=== PATIENT | male | born 1995 | race Caucasian/White ===

== ENCOUNTER 2018-02-06 20:02 | Inpatient (IN) | payer OTHER ==
[~2018-02-06] VITALS: Ht 165.1 cm; Wt 64.4 kg
[2018-02-06] MEDS ORDERED: DEPO-TESTOS200 MG/M1 IM (20:22)
[2018-02-06 20:40] LABS: BASO % 0.2 % (0.0-2.0); EOS % 0.2 % (0-4.0); GRAN % 70.3 % (42.2-75.2); HEMOGLOBIN 10.3 g/dl (13.5-18.0); LYMPH % 18.1 % (20.0-51.0); MEAN CELL VOLUME 85 fl (80.0-100.0); MEAN CORPUSCULAR HEMOGLOBIN 28 pg (27.0-31.0); MEAN CORPUSCULAR HGB CONC 33 g/dl (33.0-37.0); MEAN PLATELET VOLUME 8.9 fl (7.4-10.4); MONO # 1.2 (0.1-0.6); MONO % 10.8 % (1.7-9.3); PLATELET COUNT 332 K/mm3 (130-400); RED BLOOD COUNT 3.69 M/mm3 (4.20-5.60); REDCELL DISTRIBUTION WIDTH-CV 13.6 % (11.5-14.5)
[2018-02-06 20:41] LABS: HEMATOCRIT 31.5 % (42.0-52.0)
[2018-02-06 20:49] LABS: ALBUMIN 3.7 gm/dL (3.5-5.0); BILIRUBIN,TOTAL 0.3 mg/dL (0.0-1.0); CALCIUM 9.1 mg/dL (8.4-10.2); CREATININE, serum 1.59 mg/dL (0.66-1.25); TOTAL PROTEIN 7.4 gm/dL (6.4-8.2)
[2018-02-06 21:00] LABS: C-REACTIVE PROTEIN 16.1 mg/dL (0.0-0.9)
[2018-02-06 23:54] LABS: COLLECTION METHOD CLEAN CATCH
[2018-02-07] VITALS (219 sets, daily range): BP systolic 99–164; BP diastolic 58–98; PULSE 79–138; TEMP 98.2–103.1; O2SAT 95–100
[2018-02-07 00:07] LABS: PH 7 (5-8); SQUAMOUS EPITHELIAL None Seen /hpf; URINE APPEARANCE Hazy; URINE BACTERIA None Seen /hpf; URINE BILIRUBIN Negative (NEGATIVE); URINE BLOOD 2+ (NEGATIVE); URINE COLOR Straw; URINE GLUCOSE Negative (NEGATIVE); URINE KETONE Negative (NEGATIVE); URINE LEUKOCYTE ESTERASE 3+ (NEGATIVE); URINE NITRATE Negative (NEGATIVE); URINE PROTEIN(semi-quant) Negative (NEGATIVE); URINE RBC 0-2 /hpf; URINE UROBILINOGEN Negative (NEGATIVE)
[2018-02-07] MEDS ORDERED: TUMS500 MG PO (00:39)
[2018-02-07 07:04] LABS: BASO % 0.1 % (0.0-2.0); EOS % 0.1 % (0-4.0); GRAN % 67.7 % (42.2-75.2); LYMPH % 19.6 % (20.0-51.0); MEAN CELL VOLUME 86 fl (80.0-100.0); MEAN CORPUSCULAR HEMOGLOBIN 28 pg (27.0-31.0); MEAN CORPUSCULAR HGB CONC 32 g/dl (33.0-37.0); MEAN PLATELET VOLUME 9.1 fl (7.4-10.4); MONO # 1.2 (0.1-0.6); MONO % 11.8 % (1.7-9.3); PLATELET COUNT 304 K/mm3 (130-400); REDCELL DISTRIBUTION WIDTH-CV 13.9 % (11.5-14.5)
[2018-02-07 07:05] LABS: HEMATOCRIT 30.9 % (42.0-52.0)
[2018-02-07 07:24] LABS: CALCIUM 7.9 mg/dL (8.4-10.2); CREATININE, serum 1.36 mg/dL (0.66-1.25); POTASSIUM 3.5 mmol/L (3.4-5.0)
[2018-02-07 07:35] LABS: INR 1.2 (0.8-3.0); PROTHROMBIN TIME 13.8 SECONDS (9.7-12.8)
[2018-02-07 08:22] LABS: CREATININE, serum 1.35 mg/dL (0.66-1.25)
[2018-02-08] VITALS (1271 sets, daily range): BP systolic 113–126; BP diastolic 81; PULSE 90–123; TEMP 98.4–101.4; O2SAT 90–100
[2018-02-08 06:03] LABS: BASO % 0.3 % (0.0-2.0); EOS % 0.1 % (0-4.0); GRAN # 5.1 (1.4-6.5); GRAN % 68.3 % (42.2-75.2); LYMPH # 1.7 (1.2-3.4); LYMPH % 23.1 % (20.0-51.0); MEAN CELL VOLUME 86 fl (80.0-100.0); MEAN CORPUSCULAR HGB CONC 32 g/dl (33.0-37.0); MEAN PLATELET VOLUME 9.1 fl (7.4-10.4); MONO # 0.6 (0.1-0.6); MONO % 7.5 % (1.7-9.3); PLATELET COUNT 260 K/mm3 (130-400); RED BLOOD COUNT 3.17 M/mm3 (4.20-5.60); REDCELL DISTRIBUTION WIDTH-CV 14.4 % (11.5-14.5)
[2018-02-08 06:05] LABS: HEMATOCRIT 27.3 % (42.0-52.0); HEMOGLOBIN 8.7 g/dl (13.5-18.0); MEAN CORPUSCULAR HEMOGLOBIN 27 pg (27.0-31.0)
[2018-02-08 06:14] LABS: CALCIUM 7.4 mg/dL (8.4-10.2); CREATININE, serum 1.14 mg/dL (0.66-1.25); POTASSIUM 3.6 mmol/L (3.4-5.0)
[2018-02-09] VITALS (481 sets, daily range): BP systolic 122–125; BP diastolic 75–84; PULSE 68–95; TEMP 97.5–98.1; O2SAT 93–100
[2018-02-09 05:23] LABS: BASO % 0.3 % (0.0-2.0); EOS # 0.1 (0.0-0.7); EOS % 0.9 % (0-4.0); GRAN # 4.5 (1.4-6.5); GRAN % 61.1 % (42.2-75.2); LYMPH # 2.2 (1.2-3.4); LYMPH % 29.1 % (20.0-51.0); MEAN CELL VOLUME 86 fl (80.0-100.0); MEAN CORPUSCULAR HGB CONC 32 g/dl (33.0-37.0); MEAN PLATELET VOLUME 8.7 fl (7.4-10.4); MONO # 0.6 (0.1-0.6); MONO % 8.1 % (1.7-9.3); PLATELET COUNT 304 K/mm3 (130-400); RED BLOOD COUNT 3.53 M/mm3 (4.20-5.60); REDCELL DISTRIBUTION WIDTH-CV 14.6 % (11.5-14.5)
[2018-02-09 05:27] LABS: HEMATOCRIT 30.4 % (42.0-52.0); HEMOGLOBIN 9.8 g/dl (13.5-18.0); MEAN CORPUSCULAR HEMOGLOBIN 28 pg (27.0-31.0)
[2018-02-09 05:36] LABS: ALBUMIN 2.8 gm/dL (3.5-5.0); BILIRUBIN,TOTAL 0.3 mg/dL (0.0-1.0); CALCIUM 8.4 mg/dL (8.4-10.2); CREATININE, serum 0.97 mg/dL (0.66-1.25); POTASSIUM 3.7 mmol/L (3.4-5.0); TOTAL PROTEIN 6.1 gm/dL (6.4-8.2)
[2018-02-10 03:40] VITALS: BP 123/78; PULSE 88; TEMP 98.1
[2018-02-10 06:45] LABS: BASO % 0.3 % (0.0-2.0); EOS # 0.1 (0.0-0.7); EOS % 1.3 % (0-4.0); GRAN # 4.6 (1.4-6.5); GRAN % 64.1 % (42.2-75.2); LYMPH % 27.6 % (20.0-51.0); MEAN CELL VOLUME 86 fl (80.0-100.0); MEAN CORPUSCULAR HGB CONC 32 g/dl (33.0-37.0); MONO # 0.5 (0.1-0.6); MONO % 6.3 % (1.7-9.3); PLATELET COUNT 338 K/mm3 (130-400); RED BLOOD COUNT 3.57 M/mm3 (4.20-5.60); REDCELL DISTRIBUTION WIDTH-CV 14.6 % (11.5-14.5)
[2018-02-10 06:53] LABS: HEMATOCRIT 30.6 % (42.0-52.0); HEMOGLOBIN 9.8 g/dl (13.5-18.0); MEAN CORPUSCULAR HEMOGLOBIN 27 pg (27.0-31.0)
[2018-02-10 07:05] LABS: CALCIUM 8.4 mg/dL (8.4-10.2); CREATININE, serum 0.92 mg/dL (0.66-1.25); POTASSIUM 3.5 mmol/L (3.4-5.0)
[2018-02-10 08:34] VITALS: BP 128/84; PULSE 70; TEMP 98
[2018-02-10 12:24] VITALS: BP 131/89; PULSE 77; TEMP 98.3
[2018-02-10] MEDS ORDERED: LEVAQUIN 5500 MG/TA1 PO (12:35)
[2018-02-10] MEDS ORDERED: CIPRO 500MG TA500 MG PO (12:47)
== END 2018-02-10 14:30 | disposition home or self-care (01) | DRG 872 ==
LOC: COL.ER 20:02 → SURG 23:54 → EDBEDREQ 02-07 00:10 → SURG 02-07 10:33 → ICU 02-07 21:20 → SURG 02-09 15:01
PROVIDERS: Emergency Medicine; Hospitalist; Nurse Practitioner; Physician Assistant; Urology
PROC: 0T9430Z Drainage of Left Kidney Pelvis with Drainage Device, Percutaneous Approach (ICD-10-PCS; principal; 2018-02-07)
PROC: 0T9330Z Drainage of Right Kidney Pelvis with Drainage Device, Percutaneous Approach (ICD-10-PCS; 2018-02-07)
DX: A41.9 Sepsis, unspecified organism (principal); N39.0 Urinary tract infection, site not specified; N13.6 Pyonephrosis; N17.9 Acute kidney failure, unspecified; E87.1 Hypo-osmolality and hyponatremia; B96.4 Proteus (mirabilis) (morganii) as the cause of diseases classified elsewhere; B96.89 Other specified bacterial agents as the cause of diseases classified elsewhere; N18.3 Chronic kidney disease, stage 3 (moderate); Z93.2 Ileostomy status; Z93.3 Colostomy status; Z85.51 Personal history of malignant neoplasm of bladder; E87.6 Hypokalemia
CPT/HCPCS: 99223-AI; 99233-AI; 99239; C1729; C1751; C1894; J0692; J0696; J1644; J2270; J2405; J3010; J7030; J7120

== ENCOUNTER 2018-02-24 10:50 | Observation (INO) | payer OTHER ==
[~2018-02-24] VITALS: Ht 165.1 cm; Wt 66.0 kg
[2018-02-24] VITALS (11 sets, daily range): BP systolic 120–134; BP diastolic 66–89; PULSE 64–121; TEMP 97.9–98.1
[~2018-02-24 10:50] MED LIST: CIPRO 500MG TA500 MG PO; DEPO-TESTOS200 MG/M1 IM; LEVAQUIN 5500 MG/TA1 PO; TUMS500 MG PO
[2018-02-24] MEDS ORDERED: LEVAQUIN 5500 MG/TA1 PO (11:31)
[2018-02-25 04:12] VITALS: BP 117/69; PULSE 95; TEMP 97.9
[2018-02-25 08:16] VITALS: BP 116/67; PULSE 101; TEMP 97.5
== END 2018-02-25 09:40 | disposition home or self-care (01) ==
LOC: SDCO 10:50 → SURG 14:44
DX: N20.2 Calculus of kidney with calculus of ureter (principal); Q62.5 Duplication of ureter; Z93.3 Colostomy status
CPT/HCPCS: A9284; C1769; C1894; C2617; G0378; J0690; J1100; J1885; J1956; J2405; J2704; J3010; J7120; Q9967

== ENCOUNTER → 2018-09-13 | Outpatient (CLI) | payer OTHER | LOC: COL.LAB 09:30 | DX: E29.1 Testicular hypofunction (principal); N52.31 Erectile dysfunction following radical prostatectomy ==